=== PATIENT | female | born 1985 | race Asian ===

== ENCOUNTER → 2021-02-11 12:48 | Outpatient (CLI) | payer OTHER, SELFPAY ==
[2021-02-11 13:18] LABS: Add Manual Diff / Slide Review NO; Appearance Urine UA CLOUDY; Basophils Absolute Auto 0 /uL (0-100); Basophils Percent Auto 0.4 % (0-2); Bilirubin Urine UA NEGATIVE (NEGATIVE); Color Urine UA YELLOW; Eosinophils Absolute Auto 200 /uL (0-450); Eosinophils Percent Auto 2.3 % (2-4); Glucose Urine UA NEGATIVE (Negative); Hematocrit 38.7 % (36-46); Hemoglobin 13.1 g/dL (12.0-16.0); Ketones Urine UA NEGATIVE (NEGATIVE); Leukocyte Esterase Urine UA NEGATIVE (NEGATIVE); Lymphocytes Absolute Auto 1900 /uL (1100-4500); Lymphocytes Percent Auto 17.9 % (25-40); Mean Corpuscular HGB Conc 33.8 % (30-36); Mean Corpuscular Hemoglobin 28.5 PG (26-34); Mean Corpuscular Volume 84.3 fL (80-100); Monocytes Absolute Auto 700 /uL (0-900); Monocytes Percent Auto 6.5 % (3-14); Neutrophils Absolute Auto 7700 /uL (1500-7000); Neutrophils Percent Auto 72.9 % (50-75); Nitrite Urine UA NEGATIVE (Negative); Occult Blood Urine UA TRACE-LYSED (Negative); Platelet Count 265 X10^3/uL (150-400); Protein Urine UA NEGATIVE (Negative); Red Blood Cell Count 4.59 X10^6/uL (4.0-5.2); Red Cell Distribution Width 14.4 % (11.6-14.8); Specific Gravity Urine UA 1.015 (1.000-1.035); Urobilinogen Urine UA 0.2 E.U./dL (0.2); White Blood Cell Count 10.5 X10^3/uL (4.5-11.0)
[2021-02-11 13:40] LABS: pH Urine UA 7.5 (4.5-8.0)
[2021-02-12 06:28] LABS: RPR Screen Non Reactive (Non Reactive)
[2021-02-12 09:39] LABS: Varicella IgG Antibody 1547 index (Immune >165)
[2021-02-14 18:46] LABS: Hepatitis B Surface Antigen NEGATIVE s/c (NEGATIVE); Rubella Antibody IgG 16.9 IU/mL (>15)
[2021-02-14 19:06] LABS: HIV 1 & 2 Ab/Ag 4th Gen Combo NEGATIVE (NEGATIVE); Hep C Virus Ab w/Reflex Quant NEGATIVE s/c (NEGATIVE)
== END ==
PROVIDERS: Referring Provider Family Medicine; Visit Provider Family Medicine
DX: Z34.82 Encounter for supervision of other normal pregnancy, second trimester; Z3A.16 16 weeks gestation of pregnancy
CPT/HCPCS: 36415; 80055; 81003; 81420; 86787; 86803; 86850; 86900; 86901; 87086; 87389

== ENCOUNTER → 2021-03-09 10:51 | Outpatient (CLI) | payer OTHER, SELFPAY ==
--- NOTE | 2021-03-09 10:52 | DI.US.S_ITS ---
PROCEDURE: US OB >= 14 WEEKS FETUS INDICATIONS: ANATOMIC SURVEY OUTSIDE/PRIOR DATING DATA: Last menstrual period (LMP): Unknown . LMP-based estimated date of delivery (OTF): Not applicable . First dating scan (date and location): March 09, 2021 . Estimated date of delivery (OTF) from first dating scan: July 28, 2021 . TECHNIQUE: Real-time scanning was performed of the fetus, with image documentation and biometric measurements. Endovaginal scanning: Not performed COMPARISON: None. FINDINGS: General: A single living intrauterine gestation is present. Presentation: Transverse/oblique. Placenta: Placental position is anterior , without previa. Amniotic fluid index: 11.1 cm, normal range is 5-24 cm. Largest pocket: 3.8 cm heart rate: 158 beats per minute. Maternal cervical canal: 4.1 cm long. Normal lower limit is 2.5 cm. biometrics: Biparietal diameter: 4.6 cm, correlating with 19 weeks and 6 days Head circumference: 16.5 cm, correlating with 19 weeks and 1 day Abdominal circumference: 14.7 cm, correlating with 20 weeks and 0 days Femur length: 3.4 cm, correlating with 20 weeks and 4 days Estimated gestational age from initial scan: not applicable. Composite gestational age from present scan: 19 weeks and 6 days Estimated weight and percentile: 334 g. Percentile not able to be calculated Measurement variability for biometric dating: +/- 7 days from 14 weeks to 15 weeks 6 days gestation, +/- 10 days from 16 weeks to 21 weeks 6 days gestation, +/- 2 weeks from 22 weeks to 27 weeks 6 days gestation, +/- 3 weeks for 28 weeks gestation or later. weight reference: 4500 g or EFW >90/95% is considered macrosomia or large for gestational age. EFW <10% is small for gestational age. EFW 5% or less is considered intra-uterine growth restriction. Anatomic survey: Neuro: Ventricles are non-dilated at less than 10 mm. Cisterna magna is normal at 3-11 mm. Cerebellum is normal in size and morphology. Nuchal skin fold: Normal at less than 6 mm between 14-21 weeks gestational age. Face: Nose and lips, facial profile are normal. Spine: Not well visualized. Heart: Four-chamber heart and ventricular outflow tracts not well visualized. Diaphragm: Diaphragm is intact. Stomach: Left-sided stomach is present. Kidneys: No hydronephrosis. Normal is less than 5 mm in 2nd trimester, less than 7 mm in 3rd trimester. Cord: 3-vessel cord has orthotopic insertion. Bladder: Normal in size. Extremities: All 4 extremities identified. IMPRESSION: Single living intrauterine gestation with estimated sonographic gestational age of approximately 19 weeks and 6 days which correlates with estimated dated delivery of approximately July 28, 2021. Estimated weight of approximately 334 g. (Percentile not able to be calculated.) The spine, heart and ventricular outflow tracts were not well visualized secondary to positioning and scanning maternal characteristics. Follow-up imaging recommended. Dictated by: Reed Mendez M.D. on 03/09/2021 at 15:13 Approved by: Reed Mendez M.D. on 03/09/2021 at 15:20
== END ==
PROVIDERS: PCP Family Medicine; Referring Provider Family Medicine; Visit Provider Family Medicine
DX: Z34.82 Encounter for supervision of other normal pregnancy, second trimester (principal); Z3A.19 19 weeks gestation of pregnancy
CPT/HCPCS: 76811